=== PATIENT | female | born 1975 | race American Indian/Alaskan Native ===

== ENCOUNTER 2019-10-24 03:56 | Emergency (ER) | payer OTHER ==
[2019-10-24 04:08] VITALS: BP 127/84
[2019-10-24] MEDS ORDERED: IBUPROFEN 600 MG TAB PO ONE (04:57)
[2019-10-24] MEDS ORDERED: ACETAMINOPHEN 500 MG TAB PO ONE (04:57)
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
== END 2019-10-24 07:14 | disposition home or self-care (01) ==
LOC: ED 03:56
DX: S00.83XA Contusion of other part of head, initial encounter (principal); Z98.890 Other specified postprocedural states; Y04.8XXA Assault by other bodily force, initial encounter; Y93.89 Activity, other specified; Y92.89 Other specified places as the place of occurrence of the external cause; Y99.8 Other external cause status
CPT/HCPCS: 70486